=== PATIENT | female | born 1950 | race Caucasian/White ===

== ENCOUNTER 2017-10-11 11:43 | Emergency (ER) | payer BC, MEDICARE ==
[~2017-10-11] VITALS: Ht 162.6 cm; Wt 89.4 kg
[~2017-10-11 11:43] MED LIST: ALENDRONATE SOD70 MG PO; AMLODIPINE BESY10 MG PO; ASPIRIN325 MG PO; BACLOFEN TOP; CARVEDILOL12.5 MG PO; CRESTOR10 MG PO; DOXEPIN TOP; Hydrocort TOP; NASACORT INH; NEURONTIN300 MG PO; NORCO 10-325 T1 EACH PO; Nexium PO; SINGULAIR10 MG PO; Tylenol Arthritis PO; VESICARE5 MG PO; [UNRECOGNIZED DRUG - OTHER] TOP
--- OUTSIDE RECORDS SUMMARY | 2017-10-11 11:46 | XMS REPORT ---
Author Author [facility] Address Unknown Phone Unavailable Care Team Providers Care Financial Sales Professional Name Role Phone GUICHO BENNETT Unavailable Unavailable Problems This patient has no known problems. Allergies, Adverse Reactions, Alerts This patient has no known allergies or adverse reactions. Medications This patient has no known medications. Results Test Description Test Time Test Comments Text Results Atomic Results Result Comments CHEST [address] [facility] [address] [address] Patient Name: SERAFIN RODRIGUEZ MR #: [id number] : 1950 Age/Sex: 67/F Req # : [id number] Adm Physician: Ordered by: GUICHO BENNETT DPM Report #: [id number] Location: OR Room/Bed: Procedure: [id number] DX/CHEST 2 VIEWS Exam Date: Exam Time: REPORT STATUS: Signed PROCEDURE: Frontal and lateral views of the chest. COMPARISON: None. INDICATIONS: PRE OPERATIVE CHEST X-RAY FOR FOOT SURGERY FINDINGS: Lines/tubes: None. Lungs: Limited by body habitus. The lungs are well inflated and clear. There is no evidence of pneumonia or pulmonary edema. Left mid lung linear atelectasis/scaring. Pleura: There is no pleural effusion or pneumothorax. Heart and mediastinum: The cardiac silhouette is mildly enlarged. Bones: No acute bony abnormality. Mildly elevated right hemidiaphragm. IMPRESSION: 1. No acute cardiopulmonary disease. Dictated by: Bandar Cunningham M.D. on 06/01/2017 at 13:10 Electronically approved by: Bandar Cunningham M.D. on 06/01/2017 at 13:10 Dictated By: BANDAR CUNNINGHAM MD [id number] Transcribed By: ERNIE on 06/01/17 1310 COPY TO: GUICHO BENNETT DPM
[2017-10-11] MEDS ORDERED: ACETAMINOPHEN 325 MG TAB PO ONE (12:30)
[2017-10-11] MEDS ORDERED: CRESTOR10 MG (13:04)
== END 2017-10-11 13:38 | disposition home or self-care (01) ==
LOC: FSED 11:43
DX: S93.402A Sprain of unspecified ligament of left ankle, initial encounter (principal); W01.0XXA Fall on same level from slipping, tripping and stumbling without subsequent striking against object, initial encounter; Y92.008 Other place in unspecified non-institutional (private) residence as the place of occurrence of the external cause; I10 Essential (primary) hypertension
CPT/HCPCS: 99283

== ENCOUNTER 2019-03-21 17:04 | Emergency (ER) | payer MEDICARE ==
[~2019-03-21] VITALS: Ht 160 cm; Wt 88.0 kg
[~2019-03-21 17:04] MED LIST changes: +CRESTOR10 MG
--- OUTSIDE RECORDS SUMMARY | 2019-03-21 17:06 | XMS REPORT | Continuity of Care Document ---
Author Author [facility] Address Unknown Phone Unavailable Care Team Providers Care Wool Hanker Name Role Phone [facility] 12Return Information Exchange Unavailable Unavailable Problems No Data Provided for This Section Medications Medication Details Route Status Patient Instructions Ordering Provider Order Date Source Alendronate Sodium 70 Mg Tablet, 70 Mg Oral Daily Active 06/04/2017 [facility] Alendronate Sodium 70 Mg Tablet Weekly Active [facility] Amlodipine Besylate 10 Mg Tablet Daily Active [facility] Aspirin 325 Mg Tablet Daily Active [facility] Carvedilol 12.5 Mg Tablet Twice A Day Active [facility] Doxepin Four Times Daily Active [facility] Gabapentin (Neurontin) 300 Mg Capsule Daily Active [facility] Hydrocodone Bit/Acetaminophen ([place] 10-325 Tablet) 1 Each Tablet As Needed Active [facility] Hydrocort Twice A Day Active [facility] Katoprofen/Baclofen Four Times Daily Active [facility] Montelukast Sodium (Singulair) 10 Mg Tablet Daily Active [facility] Nasacort Twice A Day Active [facility] Nexium Daily Active [facility] Rosuvastatin Calcium (Crestor) 10 Mg Tab Bedtime Active THERAPEUTICALLY SUBSTITUTED WITH SIMVASTATIN 40MG [facility] Solifenacin Succinate (Vesicare) 5 Mg Tablet Daily Active [facility] Tylenol Arthritis Three Times A Day Active [facility] Allergies, Adverse Reactions, Alerts Substance Category Reaction Severity Reaction type Status Date Reported Comments Source Misoprostol Unknown Allergy to Substance Active 01/07/2010 [facility] Oxycodone Unknown Allergy to Substance Active 01/07/2010 [facility] Aspirin Unknown Allergy to Substance Active 01/07/2010 [facility] Erythromycin base Unknown Allergy to Substance Active 01/07/2010 [facility] Azithromycin Unknown Allergy to Substance Active 01/07/2010 [facility] HELEN INHALER Unknown Allergy to Substance Active 01/07/2010 [facility] SERVANT INHALER Unknown Allergy to Substance Active 01/07/2010 [facility] Lisinopril cough Unknown Allergy to Substance Active 06/02/2017 [facility] Ciprofloxacin nausea/vomiting/lightheadedness Unknown Allergy to Substance Active 06/02/2017 [facility] Amoxicillin nausea/sores on inside mouth Unknown Allergy to Substance Active 06/02/2017 [facility] TORESIMIDE Abnormal kidney results Unknown Allergy to Substance Active 06/02/2017 [facility] Immunizations No Data Provided for This Section Results No Data Provided for This Section Pathology Reports No Data Provided for This Section Diagnostic Reports No Data Provided for This Section Consultation Notes No Data Provided for This Section Discharge Summaries No Data Provided for This Section History and Physicals No Data Provided for This Section Vital Signs No Data Provided for This Section Encounters Location Location Details Encounter Type Encounter Number Reason For Visit Attending Provider ADM Date DC Date Status Source Registered Surgical Day Care [id number] GUICHO BENNETT DPM 06/04/2017 [facility] Departed Emergency Room [id number] NEERAJ MERCHANT MD 10/11/2017 10/11/2017 [facility] Procedures Procedure Code Date Perfomer Comments Source [employer] FASCIOTOMY 30421 06/04/2017 [facility] X-ray of chest, two views [id number] 06/01/2017 [facility] Assessment and Plan No Data Provided for This Section Plan of Care Plan of Care Date Source Discharge Date 10/11/17 1:38pm Disposition HOME, SELF-CARE Condition at Discharge Stable Instructions/Education Provided Sprains - Ankle Forms Provided Work/School Excuse Prescriptions See Medication Section Additional Instructions/Education See attached handout for instructions on care of Ankle Sprain Follow-up if the pain is worsening, instead of improving, despite resting, elevating and applying ice to the area. You may take the pain medication that you stated that you have at home, as needed, for pain. 10/11/2017 [facility] Social History Social History Date Source Smoking Status Start Date Stop Date Never Smoker 10/11/2017 [facility] Family History No Data Provided for This Section Advance Directives Order Name Results Value Date Source Advance Directives Advance Directives Directive Response Recorded Date/Time Does the patient have an advance directive? Yes 06/01/17 11:35am If yes, is advance directive on file with [facility]? No 12/31/09 2:39pm If not on file with [facility] will patient provide a copy? No 06/01/17 11:35am Do you have a Directive to Physician? No 10/11/17 12:29pm Do you have a Medical Power of Software Support Analyst? No 10/11/17 12:29pm Do you have an out of hospital Do Not Resuscitate Order? No 10/11/17 12:29pm Do you have any special needs we should be aware of? No 10/11/17 12:29pm Do you have a support person here with you today? Yes 10/11/17 12:29pm Did patient receive Notice of Privacy Practices? Yes 10/11/17 12:29pm Did patient receive patient rights and responsibilities? Yes 10/11/17 12:29pm 10/11/2017 [facility] Functional Status No Data Provided for This Section
[2019-03-21] MEDS ORDERED: ACETAMINOPHEN 325 MG TAB PO ONE ×2 (17:30)
[2019-03-21] MEDS ORDERED: IBUPROFEN 200 MG TAB ONE (17:31)
--- NOTE | 2019-03-21 18:10 | Diagnostic Imaging Report ---
Hand limited Indication:Fall, first digit pain Technique: Two views of the right hand obtained Comparison: None. Findings: The bones are diffusely demineralized. Distal radius and ulna appear intact. Carpal bones appear generally well aligned. There are moderate degenerative changes of the first CMC joint. The trapezium is poorly visualized due to overlapping osseous structures. No fracture or dislocation of the digits. No focal osseous lesions or radiopaque foreign bodies in the soft tissues. IMPRESSION: No evidence for displaced fracture or current dislocation given the limitations of this exam. 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 Signed by: Dr. Adeline Marroquin MD on 03/21/2019 6:06 PM
--- NOTE | 2019-03-21 18:11 | Diagnostic Imaging Report ---
Wrist limited right CPT code: 02348 Indication: Fall, posterior pain Technique: Two views right wrist obtained without comparison. Findings: The visualized portions of the distal radius and ulna are intact. No destructive lesions of bone. Carpal bones in the distal row overlap with head of the metacarpal bones on several images. Proximal row of carpal bones appears intact. Visualized metacarpal bones appear intact. There are degenerative changes of the first CMC joint. IMPRESSION: No evidence of displaced fracture or dislocation involving the right wrist. Signed by: Dr. Adeline Marroquin MD on 03/21/2019 6:08 PM
--- NOTE | 2019-03-21 18:13 | Diagnostic Imaging Report ---
Elbow limited CPT code: 49327 Indication: Trauma Technique: A.P. and lateral images of the right elbow obtained without comparison Findings: Alignment appears maintained on the lateral view. No evidence of dislocation. The head of the radius appears intact, although overlapping with adjacent structures on both images. Proximal ulna appears intact. Distal humerus appears intact. No evidence of elbow effusion. IMPRESSION: No evidence of acute fracture or dislocation. Signed by: Dr. Adeline Marroquin MD on 03/21/2019 6:09 PM
[2019-03-21] MEDS ORDERED: IBUPROFEN 600 MG TAB PO STA (18:20)
[2019-03-21 18:43] VITALS: BP 138/84
== END 2019-03-21 18:55 | disposition home or self-care (01) ==
LOC: FSED 17:04
DX: S50.01XA Contusion of right elbow, initial encounter (principal); S60.211A Contusion of right wrist, initial encounter; S80.01XA Contusion of right knee, initial encounter; W18.00XA Striking against unspecified object with subsequent fall, initial encounter; Y92.481 Parking lot as the place of occurrence of the external cause; Z79.82 Long term (current) use of aspirin
CPT/HCPCS: 99283

== ENCOUNTER → 2021-03-21 | Outpatient (CLI) | payer MEDICARE | LOC: MRI 09:03 | PROVIDERS: ATTEND Family Medicine | DX: M54.16 Radiculopathy, lumbar region (principal) | CPT/HCPCS: 72148 ==

== ENCOUNTER → 2021-12-24 | Outpatient (CLI) | payer MEDICARE ==
[~2021-12-24] MED LIST changes: +GADOBENATE DIMEGLUMINE 1 ML IV ONE
[2021-12-24 11:42] LABS: CREATININE, SERUM 1.08 mg/dL (0.57-1.11)
== END ==
LOC: MRI 10:45
PROVIDERS: ATTEND Urology
DX: D41.02 Neoplasm of uncertain behavior of left kidney (principal); N18.9 Chronic kidney disease, unspecified
CPT/HCPCS: 36415; 74183; 82565; 84520; A9577

== ENCOUNTER → 2021-12-31 | Outpatient (CLI) | payer MEDICARE ==
[~2021-12-31] MED LIST changes: -GADOBENATE DIMEGLUMINE 1 ML IV ONE
== END ==
LOC: MRI 14:21
PROVIDERS: ATTEND Family Medicine
DX: M54.16 Radiculopathy, lumbar region (principal)
CPT/HCPCS: 72148

== ENCOUNTER 2022-01-23 14:29 | Inpatient (IN) | payer MEDICARE, OTHER ==
[~2022-01-23] VITALS: Ht 160 cm; Wt 88.0 kg
[2022-01-23] MEDS ORDERED: DOXYCYCLINE IV ONE (15:30)
[2022-01-23] MEDS ORDERED: SODIUM CHLORIDE 0.9% IV ONE (15:30)
[2022-01-23] MEDS ORDERED: ACETAMINOPHEN 325 MG TAB PO ONE (15:30)
[2022-01-23] MEDS ORDERED: SODIUM CHLORIDE 0.9% 1000ML 2,470 ML IV ONE (15:30)
[2022-01-23 15:47] LABS: BASOPHILS % 0.3 % (0.0-1.0); EOSINOPHILS # (AUTO) 0.5 (0.0-0.4); EOSINOPHILS % 3.9 % (0.0-6.0); HEMOGLOBIN 13.3 g/dL (12.0-16.0); LYMPHOCYTES % 8.4 % (18.0-39.1); MEAN CORPUSCULAR HEMOGLOBIN 31.7 pg (28-32); MEAN CORPUSCULAR HGB CONC 31.7 g/dL (31-35); MONOCYTES # (AUTO) 1.2 (0.2-0.8); MONOCYTES % 10.3 % (4.4-11.3); NEUTROPHILS # (AUTO) 9.1 (2.1-6.9); NEUTROPHILS % 76.7 % (38.7-80.0); PLATELET COUNT 197 x10e3/uL (140-360); RED CELL DISTRIBUTION WIDTH 12.9 % (11.7-14.4)
[2022-01-23 15:59] LABS: ALBUMIN 2.8 g/dL (3.5-5.0); ALBUMIN/GLOBULIN RATIO 0.6 (0.8-2.0); ANION GAP 16.1 mmol/L (8-16); CALCIUM 9.4 mg/dL (8.4-10.2); CREATININE, SERUM 1.1 mg/dL (0.57-1.11); POTASSIUM 4.1 mmol/L (3.5-5.1)
[2022-01-23] MEDS ORDERED: Doxycycline IV 100 MG in SODIUM CHLORIDE 0.9% 100 ML IV ONE (16:00)
[2022-01-23 16:52] LABS: CLARITY,URINE CLEAR (CLEAR); COLOR,URINE YELLOW (YELLOW); KETONES,URINE NEGATIVE (NEGATIVE); LEUKOCYTE ESTERASE ,URINE TRACE (NEGATIVE); NITRITE,URINE NEGATIVE (NEGATIVE); PROTEIN,URINE DIPSTICK 1+ (NEGATIVE); URINE UROBILINOGEN 0.2 mg/dL (0.2 - 1)
[2022-01-23 17:02] LABS: BACTERIA,URINE RARE /HPF; EPITHELIAL CELLS,URINE FEW /LPF; RBC,URINE 0-5 /HPF (0-5)
[2022-01-23] MEDS ORDERED: PROAIR HFA INH8.5 GM PO (17:45)
[2022-01-23] MEDS ORDERED: DOXYCYCLINE HY100 M4 PO (17:45)
[2022-01-23] MEDS ORDERED: DECADRON4 M1 PO (17:45)
[2022-01-23] MEDS ORDERED: ALBUTEROL SULFATE HFA 8GM INHALATION AEROSOL INH PRN (18:15)
[2022-01-23] MEDS ORDERED: SODIUM CHLORIDE FLUSH 10 ML SYR INJ PRN (18:15)
[2022-01-23 21:30] VITALS: BP 112/64
[2022-01-23] MEDS ORDERED: ELIQUIS5 MG PO (21:35)
[2022-01-23] MEDS ORDERED: DYMISTA NASAL S23 GM INH (21:43)
[2022-01-23] MEDS ORDERED: MYRBETRIQ50 MG PO (21:43)
[2022-01-23] MEDS ORDERED: TIZANIDINE HCL4 MG PO (21:43)
[2022-01-23 22:36] VITALS: BP 107/51
[2022-01-23] MEDS: ACETAMINOPHEN 325 MG TAB PO PRN (23:06)
[2022-01-23 23:50] VITALS: BP 120/80
[2022-01-24] VITALS (7 sets, daily range): BP systolic 134–172; BP diastolic 57–69
[2022-01-24] MEDS ORDERED: HYDROCODONE/APAP 10MG-325MG TAB PO PRN (01:45)
[2022-01-24 06:40] LABS: BASOPHILS % 0.4 % (0.0-1.0); EOSINOPHILS # (AUTO) 0.3 (0.0-0.4); EOSINOPHILS % 4.8 % (0.0-6.0); HEMATOCRIT 37.6 % (34.2-44.1); HEMOGLOBIN 11.7 g/dL (12.0-16.0); LYMPHOCYTES # (AUTO) 0.8 (1.0-3.2); LYMPHOCYTES % 11.4 % (18.0-39.1); MEAN CORPUSCULAR HEMOGLOBIN 31.5 pg (28-32); MEAN CORPUSCULAR HGB CONC 31.1 g/dL (31-35); MEAN CORPUSCULAR VOLUME 101.1 fL (81-99); MONOCYTES # (AUTO) 0.6 (0.2-0.8); MONOCYTES % 8.8 % (4.4-11.3); NEUTROPHILS % 73.7 % (38.7-80.0); PLATELET COUNT 121 x10e3/uL (140-360); RED BLOOD COUNT 3.72 x10e6/uL (3.6-5.1); RED CELL DISTRIBUTION WIDTH 12.8 % (11.7-14.4)
[2022-01-24 07:11] LABS: ALBUMIN 2.2 g/dL (3.5-5.0); ALBUMIN/GLOBULIN RATIO 0.6 (0.8-2.0); ANION GAP 14.3 mmol/L (8-16); CALCIUM 8.2 mg/dL (8.4-10.2); CREATININE, SERUM 0.87 mg/dL (0.57-1.11); MAGNESIUM 1.6 MG/DL (1.3-2.1); POTASSIUM 4.3 mmol/L (3.5-5.1)
[2022-01-24] MEDS: DEXAMETHASONE 4 MG TAB PO SCH ×2 (08:04→16:50)
[2022-01-24] MEDS: DOXYCYCLINE HYCLATE TABLET 100 MG TAB PO SCH ×2 (08:05→16:50)
[2022-01-24] MEDS: SOLIFENACIN SUCCINATE 5 MG TAB PO SCH (08:05)
[2022-01-24] MEDS: BENZONATATE 100 MG CAP PO SCH ×2 (08:05→16:50)
[2022-01-24] MEDS: APIXABAN 5 MG TABLET PO SCH ×2 (08:05→16:50)
[2022-01-24] MEDS: GABAPENTIN 400 MG CAP PO SCH ×3 (08:06→20:44)
[2022-01-24] MEDS ORDERED: SODIUM CHLORIDE 0.9% 500ML 500 ML ONE (08:29)
[2022-01-24] MEDS: ACETAMINOPHEN 325 MG TAB PO PRN ×2 (15:20→20:52)
[2022-01-24] MEDS: SIMVASTATIN 20 MG TAB PO SCH (20:44)
[2022-01-24] MEDS: MONTELUKAST SODIUM 10 MG TAB PO SCH (20:44)
[2022-01-24] MEDS: ONDANSETRON HCL INJ 2MG/ML 2ML 2 MG/ML VIAL IV PRN (20:52)
[2022-01-25] VITALS (8 sets, daily range): BP systolic 121–179; BP diastolic 67–88
[2022-01-25] MEDS: ACETAMINOPHEN 325 MG TAB PO PRN (06:32)
[2022-01-25] MEDS: ONDANSETRON HCL INJ 2MG/ML 2ML 2 MG/ML VIAL IV PRN (06:33)
[2022-01-25 07:04] LABS: BASOPHILS % 0.1 % (0.0-1.0); HEMATOCRIT 38.7 % (34.2-44.1); HEMOGLOBIN 12.4 g/dL (12.0-16.0); LYMPHOCYTES # (AUTO) 0.5 (1.0-3.2); LYMPHOCYTES % 6.7 % (18.0-39.1); MEAN CORPUSCULAR HEMOGLOBIN 31.7 pg (28-32); MONOCYTES # (AUTO) 0.3 (0.2-0.8); MONOCYTES % 4.2 % (4.4-11.3); NEUTROPHILS # (AUTO) 7.1 (2.1-6.9); PLATELET COUNT 145 x10e3/uL (140-360); RED BLOOD COUNT 3.91 x10e6/uL (3.6-5.1); RED CELL DISTRIBUTION WIDTH 12.5 % (11.7-14.4)
[2022-01-25] MEDS ORDERED: HYDRALAZINE HCL 20 MG/ML VIAL IV PRN (07:15)
[2022-01-25 07:29] LABS: ALBUMIN 2.5 g/dL (3.5-5.0); ALBUMIN/GLOBULIN RATIO 0.6 (0.8-2.0); CALCIUM 8.9 mg/dL (8.4-10.2); CREATININE, SERUM 0.78 mg/dL (0.57-1.11); MAGNESIUM 1.9 MG/DL (1.3-2.1)
[2022-01-25] MEDS: GABAPENTIN 400 MG CAP PO SCH ×3 (08:51→20:47)
[2022-01-25] MEDS: SOLIFENACIN SUCCINATE 5 MG TAB PO SCH (08:52)
[2022-01-25] MEDS: APIXABAN 5 MG TABLET PO SCH ×2 (08:52→16:43)
[2022-01-25] MEDS: DEXAMETHASONE 4 MG TAB PO SCH ×2 (08:52→16:43)
[2022-01-25] MEDS: BENZONATATE 100 MG CAP PO SCH ×2 (08:53→16:44)
[2022-01-25] MEDS: DOXYCYCLINE HYCLATE TABLET 100 MG TAB PO SCH ×2 (08:53→16:44)
[2022-01-25] MEDS: GUAIFENESIN/CODEINE 5 ML LIQD PO PRN (19:58)
[2022-01-25] MEDS: MONTELUKAST SODIUM 10 MG TAB PO SCH (20:47)
[2022-01-25] MEDS: SIMVASTATIN 20 MG TAB PO SCH (20:47)
[2022-01-25] MEDS: POLYETHYLENE GLYCOL 3350 17 GM PACK PO PRN (20:54)
[2022-01-26] VITALS (8 sets, daily range): BP systolic 113–181; BP diastolic 58–79
[2022-01-26] MEDS: GUAIFENESIN/CODEINE 5 ML LIQD PO PRN ×5 (00:17→21:25)
[2022-01-26] MEDS: ONDANSETRON HCL INJ 2MG/ML 2ML 2 MG/ML VIAL IV PRN ×2 (00:19→05:49)
[2022-01-26] MEDS: HYDRALAZINE HCL 25 MG TAB PO SCH ×3 (09:23→21:26)
[2022-01-26] MEDS: DEXAMETHASONE 4 MG TAB PO SCH (09:24)
[2022-01-26] MEDS: APIXABAN 5 MG TABLET PO SCH ×2 (09:24→17:18)
[2022-01-26] MEDS: GABAPENTIN 400 MG CAP PO SCH ×3 (09:24→21:25)
[2022-01-26] MEDS: BENZONATATE 100 MG CAP PO SCH ×2 (09:25→17:19)
[2022-01-26] MEDS: SOLIFENACIN SUCCINATE 5 MG TAB PO SCH (09:25)
[2022-01-26] MEDS: DOXYCYCLINE HYCLATE TABLET 100 MG TAB PO SCH ×2 (09:25→17:19)
[2022-01-26] MEDS: POLYETHYLENE GLYCOL 3350 17 GM PACK PO PRN (11:03)
[2022-01-26] MEDS: MONTELUKAST SODIUM 10 MG TAB PO SCH (21:25)
[2022-01-26] MEDS: SIMVASTATIN 20 MG TAB PO SCH (21:26)
[2022-01-26] MEDS: ACETAMINOPHEN 325 MG TAB PO PRN (23:58)
[2022-01-27] VITALS (8 sets, daily range): BP systolic 103–126; BP diastolic 56–84
[2022-01-27] MEDS: GUAIFENESIN/CODEINE 5 ML LIQD PO PRN ×3 (04:15→20:32)
[2022-01-27 06:39] LABS: BASOPHILS % 0.2 % (0.0-1.0); EOSINOPHILS % 0.2 % (0.0-6.0); HEMOGLOBIN 12.7 g/dL (12.0-16.0); LYMPHOCYTES # (AUTO) 0.9 (1.0-3.2); LYMPHOCYTES % 10.4 % (18.0-39.1); MEAN CORPUSCULAR HEMOGLOBIN 30.6 pg (28-32); MEAN CORPUSCULAR VOLUME 98.8 fL (81-99); MONOCYTES # (AUTO) 0.8 (0.2-0.8); MONOCYTES % 8.6 % (4.4-11.3); NEUTROPHILS # (AUTO) 6.8 (2.1-6.9); NEUTROPHILS % 76.8 % (38.7-80.0); PLATELET COUNT 194 x10e3/uL (140-360); RED BLOOD COUNT 4.15 x10e6/uL (3.6-5.1); RED CELL DISTRIBUTION WIDTH 12.6 % (11.7-14.4)
[2022-01-27 07:07] LABS: ALBUMIN 2.5 g/dL (3.5-5.0); ALBUMIN/GLOBULIN RATIO 0.6 (0.8-2.0); ANION GAP 13.9 mmol/L (8-16); CALCIUM 8.9 mg/dL (8.4-10.2); CREATININE, SERUM 1.15 mg/dL (0.57-1.11); POTASSIUM 3.9 mmol/L (3.5-5.1)
[2022-01-27] MEDS: HYDRALAZINE HCL 25 MG TAB PO SCH ×3 (09:04→20:32)
[2022-01-27] MEDS: DEXAMETHASONE 4 MG TAB PO SCH (09:04)
[2022-01-27] MEDS: GABAPENTIN 400 MG CAP PO SCH ×3 (09:04→20:31)
[2022-01-27] MEDS: BENZONATATE 100 MG CAP PO SCH ×2 (09:05→17:14)
[2022-01-27] MEDS: SOLIFENACIN SUCCINATE 5 MG TAB PO SCH (09:05)
[2022-01-27] MEDS: APIXABAN 5 MG TABLET PO SCH ×2 (09:05→17:14)
[2022-01-27] MEDS: DOXYCYCLINE HYCLATE TABLET 100 MG TAB PO SCH ×2 (09:06→17:14)
[2022-01-27] MEDS: SIMVASTATIN 20 MG TAB PO SCH (20:32)
[2022-01-27] MEDS: MONTELUKAST SODIUM 10 MG TAB PO SCH (20:32)
[2022-01-27] MEDS: MELATONIN 5 MG TABLET PO SCH (22:24)
[2022-01-28] VITALS (7 sets, daily range): BP systolic 110–156; BP diastolic 66–78
[2022-01-28] MEDS: ACETAMINOPHEN 325 MG TAB PO PRN (00:04)
[2022-01-28] MEDS: FAMOTIDINE 20 MG TAB PO SCH (06:35)
[2022-01-28 06:43] LABS: ALBUMIN 2.3 g/dL (3.5-5.0); ALBUMIN/GLOBULIN RATIO 0.6 (0.8-2.0); ANION GAP 16.9 mmol/L (8-16); CREATININE, SERUM 1.12 mg/dL (0.57-1.11); POTASSIUM 3.9 mmol/L (3.5-5.1)
[2022-01-28] MEDS: SOLIFENACIN SUCCINATE 5 MG TAB PO SCH (08:58)
[2022-01-28] MEDS: GABAPENTIN 400 MG CAP PO SCH ×3 (08:58→20:10)
[2022-01-28] MEDS: APIXABAN 5 MG TABLET PO SCH ×2 (08:59→17:54)
[2022-01-28] MEDS: DOXYCYCLINE HYCLATE TABLET 100 MG TAB PO SCH ×2 (08:59→17:54)
[2022-01-28] MEDS: HYDRALAZINE HCL 25 MG TAB PO SCH ×3 (08:59→20:10)
[2022-01-28] MEDS: BENZONATATE 100 MG CAP PO SCH ×2 (09:00→17:54)
[2022-01-28] MEDS: DEXAMETHASONE 4 MG TAB PO SCH (09:00)
[2022-01-28] MEDS ORDERED: FUROSEMIDE INJ 10 MG/ML 2 ML VIAL IV ONE (18:45)
[2022-01-28] MEDS: MONTELUKAST SODIUM 10 MG TAB PO SCH (20:10)
[2022-01-28] MEDS: SIMVASTATIN 20 MG TAB PO SCH (20:10)
[2022-01-28] MEDS: MELATONIN 5 MG TABLET PO SCH (20:10)
[2022-01-29] VITALS (7 sets, daily range): BP systolic 109–151; BP diastolic 59–78
[2022-01-29 07:00] LABS: BASOPHILS % 0.3 % (0.0-1.0); EOSINOPHILS # (AUTO) 0.2 (0.0-0.4); EOSINOPHILS % 2.8 % (0.0-6.0); HEMATOCRIT 42.2 % (34.2-44.1); LYMPHOCYTES # (AUTO) 1.3 (1.0-3.2); LYMPHOCYTES % 15.8 % (18.0-39.1); MEAN CORPUSCULAR HEMOGLOBIN 30.8 pg (28-32); MEAN CORPUSCULAR HGB CONC 30.8 g/dL (31-35); MONOCYTES # (AUTO) 0.9 (0.2-0.8); MONOCYTES % 10.6 % (4.4-11.3); NEUTROPHILS # (AUTO) 5.3 (2.1-6.9); NEUTROPHILS % 66.1 % (38.7-80.0); PLATELET COUNT 160 x10e3/uL (140-360); RED BLOOD COUNT 4.22 x10e6/uL (3.6-5.1); RED CELL DISTRIBUTION WIDTH 12.8 % (11.7-14.4)
[2022-01-29 07:24] LABS: ALBUMIN 2.5 g/dL (3.5-5.0); ALBUMIN/GLOBULIN RATIO 0.7 (0.8-2.0); ANION GAP 15.3 mmol/L (8-16); CALCIUM 9.2 mg/dL (8.4-10.2); CREATININE, SERUM 1.11 mg/dL (0.57-1.11); POTASSIUM 4.3 mmol/L (3.5-5.1)
[2022-01-29] MEDS: GABAPENTIN 400 MG CAP PO SCH ×3 (08:44→21:04)
[2022-01-29] MEDS: FAMOTIDINE 20 MG TAB PO SCH (08:44)
[2022-01-29] MEDS: APIXABAN 5 MG TABLET PO SCH ×2 (08:44→17:12)
[2022-01-29] MEDS: HYDRALAZINE HCL 25 MG TAB PO SCH ×3 (08:44→21:00)
[2022-01-29] MEDS: BENZONATATE 100 MG CAP PO SCH ×2 (08:45→17:12)
[2022-01-29] MEDS: SOLIFENACIN SUCCINATE 5 MG TAB PO SCH (08:45)
[2022-01-29] MEDS: DEXAMETHASONE 4 MG TAB PO SCH (08:45)
[2022-01-29] MEDS: DOXYCYCLINE HYCLATE TABLET 100 MG TAB PO SCH ×2 (08:46→17:13)
[2022-01-29] MEDS: ONDANSETRON HCL INJ 2MG/ML 2ML 2 MG/ML VIAL IV PRN (10:39)
[2022-01-29] MEDS: MELATONIN 5 MG TABLET PO SCH (21:04)
[2022-01-29] MEDS: MONTELUKAST SODIUM 10 MG TAB PO SCH (21:04)
[2022-01-29] MEDS: GUAIFENESIN/CODEINE 5 ML LIQD PO PRN (21:04)
[2022-01-29] MEDS: SIMVASTATIN 20 MG TAB PO SCH (21:04)
[2022-01-30 01:10] VITALS: BP 126/91
[2022-01-30 03:54] VITALS: BP 141/71
[2022-01-30 08:29] VITALS: BP 119/69
[2022-01-30 08:34] VITALS: BP 119/69
[2022-01-30] MEDS: GABAPENTIN 400 MG CAP PO SCH ×2 (09:18→16:27)
[2022-01-30] MEDS: DEXAMETHASONE 4 MG TAB PO SCH (09:18)
[2022-01-30] MEDS: HYDRALAZINE HCL 25 MG TAB PO SCH ×2 (09:18→15:00)
[2022-01-30] MEDS: APIXABAN 5 MG TABLET PO SCH ×2 (09:18→16:27)
[2022-01-30] MEDS: FAMOTIDINE 20 MG TAB PO SCH (09:19)
[2022-01-30] MEDS: SOLIFENACIN SUCCINATE 5 MG TAB PO SCH (09:19)
[2022-01-30] MEDS: DOXYCYCLINE HYCLATE TABLET 100 MG TAB PO SCH ×2 (09:19→16:28)
[2022-01-30] MEDS: BENZONATATE 100 MG CAP PO SCH ×2 (09:19→16:27)
[2022-01-30 12:08] VITALS: BP 116/65
[2022-01-30] MEDS ORDERED: augmentin PO (13:42)
[2022-01-30] MEDS ORDERED: DEXAMETHASONE4 MG PO (13:42)
[2022-01-30] MEDS ORDERED: ONDANSETRON HCL 4 MG ORAL DISINTEGRATING TAB PO PRN (14:30)
[2022-01-30] MEDS ORDERED: PANTOPRAZOLE SOD 40 MG TABEC PO SCH (16:30)
[2022-01-30 16:49] VITALS: BP 101/65
== END 2022-01-30 17:40 | disposition home or self-care (01) | DRG 871 ==
LOC: ER 14:35 → ERHOLD 19:15 → MED/SURG3 21:11 → OBSVTOIN 01-25 09:02
PROVIDERS: ADMIT Family Medicine; ATTEND Family Medicine
DX: A41.9 Sepsis, unspecified organism (principal); J12.82 Pneumonia due to coronavirus disease 2019; U07.1 COVID-19; J96.01 Acute respiratory failure with hypoxia; J69.0 Pneumonitis due to inhalation of food and vomit; B17.9 Acute viral hepatitis, unspecified; N17.9 Acute kidney failure, unspecified; N39.0 Urinary tract infection, site not specified; K21.9 Gastro-esophageal reflux disease without esophagitis; N32.81 Overactive bladder; J30.2 Other seasonal allergic rhinitis; I25.10 Atherosclerotic heart disease of native coronary artery without angina pectoris; E78.00 Pure hypercholesterolemia, unspecified; J44.9 Chronic obstructive pulmonary disease, unspecified; E11.22 Type 2 diabetes mellitus with diabetic chronic kidney disease; I12.9 Hypertensive chronic kidney disease with stage 1 through stage 4 chronic kidney disease, or unspecified chronic kidney disease; N18.9 Chronic kidney disease, unspecified; E78.5 Hyperlipidemia, unspecified; K44.9 Diaphragmatic hernia without obstruction or gangrene; B96.5 Pseudomonas (aeruginosa) (mallei) (pseudomallei) as the cause of diseases classified elsewhere; R79.89 Other specified abnormal findings of blood chemistry
CPT/HCPCS: 36415; 71045; 71250; 76705; 80053; 81001; 83605; 83690; 83735; 83880; 84484; 85025; 87040; 87086; 87186; 93005; 93306; 94799; 99284; G0378; J0360; J0696; J1940; J2405; J2543; J7030; J7040; J7050

== ENCOUNTER → 2022-11-17 | Day surgery (SDC) | payer MEDICARE ==
[~2022-11-17] MED LIST changes: +DECADRON4 M1 PO; +DEXAMETHASONE4 MG PO; +DOXYCYCLINE HY100 M4 PO; +DYMISTA NASAL S23 GM INH; +ELIQUIS5 MG PO; +FENTANYL CITRATE/PF 100MCG/2 ML INJ ONE; +GEMTESA75 MG PO; +LACTATED RINGER'S 1,000 ML ONE; +LOSARTAN POTAS100 MG PO; +MIDAZOLAM HCL 2 MG/2 ML VIAL ONE; +MYRBETRIQ50 MG PO; +OR PHACO EYE KIT ONE; +PREOP PHACO EYE KIT ONE; +PROAIR HFA INH8.5 GM PO; +TIZANIDINE HCL4 MG PO; +augmentin PO
[2022-11-17 12:32] VITALS: BP 127/75
== END | disposition home or self-care (01) ==
LOC: OR 08:31
PROVIDERS: ATTEND Ophthalmology
DX: H25.11 Age-related nuclear cataract, right eye (principal); I12.9 Hypertensive chronic kidney disease with stage 1 through stage 4 chronic kidney disease, or unspecified chronic kidney disease; N18.9 Chronic kidney disease, unspecified; K21.9 Gastro-esophageal reflux disease without esophagitis; Z88.6 Allergy status to analgesic agent; Z88.1 Allergy status to other antibiotic agents; Z88.0 Allergy status to penicillin; Z88.8 Allergy status to other drugs, medicaments and biological substances; Z79.02 Long term (current) use of antithrombotics/antiplatelets; Z79.82 Long term (current) use of aspirin; Z79.899 Other long term (current) drug therapy
CPT/HCPCS: 66984; J2250; J3010; J7121; V2632

== ENCOUNTER → 2022-11-25 | Day surgery (SDC) | payer MEDICARE ==
[~2022-11-25] MED LIST changes: +BUPIVACAINE HCL 0.5% INJ 30 ML VIAL INJ ONE; +CLINDAMYCIN PHOS 900MG/ 50ML 50 ML IV ONE; +DEXAMETHASONE SOD PHOS INJ 4 MG/ML SDV ONE; +EPHEDRINE SULFATE INJ 50 MG/ML VIAL ONE; +LIDOCAINE HCL 2% LOCAL INJ 5 ML SDV VIAL INJ ONE; -MIDAZOLAM HCL 2 MG/2 ML VIAL ONE; +ONDANSETRON HCL INJ 2MG/ML 2ML 2 MG/ML VIAL ONE; -OR PHACO EYE KIT ONE; +POVIDONE IODINE 0.05% 0.05 % ML PO ONE; -PREOP PHACO EYE KIT ONE; +PROPOFOL IV EMULSION 10 MG/ML 20 ML VIAL ONE; +SEVOFLURANE INHAL SOLN 250 ML PEN BTL ONE
[2022-11-25 08:45] VITALS: BP 131/81
== END | disposition home or self-care (01) ==
LOC: OR 05:24
PROVIDERS: ATTEND Podiatrist Foot & Ankle Surgery
DX: G57.51 Tarsal tunnel syndrome, right lower limb (principal); I10 Essential (primary) hypertension; J45.909 Unspecified asthma, uncomplicated; K21.9 Gastro-esophageal reflux disease without esophagitis; G89.29 Other chronic pain; Z79.02 Long term (current) use of antithrombotics/antiplatelets; Z79.82 Long term (current) use of aspirin; Z79.899 Other long term (current) drug therapy; Z86.73 Personal history of transient ischemic attack (TIA), and cerebral infarction without residual deficits
CPT/HCPCS: 28035; 71046; J1100; J2001; J2405; J2704; J3010; J7121

== ENCOUNTER → 2022-12-07 | Outpatient (CLI) | payer MEDICARE ==
[~2022-12-07] MED LIST changes: +BIOTIN1 MG; -BUPIVACAINE HCL 0.5% INJ 30 ML VIAL INJ ONE; +CALCIUM ACETAT667 M1 PO; -CLINDAMYCIN PHOS 900MG/ 50ML 50 ML IV ONE; +D3-5000125 MCG; -DEXAMETHASONE SOD PHOS INJ 4 MG/ML SDV ONE; -EPHEDRINE SULFATE INJ 50 MG/ML VIAL ONE; -FENTANYL CITRATE/PF 100MCG/2 ML INJ ONE; -LACTATED RINGER'S 1,000 ML ONE; -LIDOCAINE HCL 2% LOCAL INJ 5 ML SDV VIAL INJ ONE; +MULTI-VITAMIN1 EACH PO; -ONDANSETRON HCL INJ 2MG/ML 2ML 2 MG/ML VIAL ONE; -POVIDONE IODINE 0.05% 0.05 % ML PO ONE; +PROBIOTIC250 MG; -PROPOFOL IV EMULSION 10 MG/ML 20 ML VIAL ONE; -SEVOFLURANE INHAL SOLN 250 ML PEN BTL ONE
== END ==
LOC: US 07:37
PROVIDERS: ATTEND Internal Medicine Gastroenterology
DX: K76.0 Fatty (change of) liver, not elsewhere classified (principal); K22.70 Barrett's esophagus without dysplasia; K57.30 Diverticulosis of large intestine without perforation or abscess without bleeding; K29.00 Acute gastritis without bleeding; K44.9 Diaphragmatic hernia without obstruction or gangrene; R16.0 Hepatomegaly, not elsewhere classified; Z68.31 Body mass index [BMI] 31.0-31.9, adult
CPT/HCPCS: 76700

== ENCOUNTER → 2022-12-15 | Day surgery (SDC) | payer MEDICARE ==
[2022-12-09 11:21] LABS: BASOPHILS # (AUTO) 0.1 (0.0-0.1); BASOPHILS % 1.2 % (0.0-1.0); EOSINOPHILS # (AUTO) 0.4 (0.0-0.4); EOSINOPHILS % 8.4 % (0.0-6.0); HEMATOCRIT 41.3 % (34.2-44.1); HEMOGLOBIN 12.8 g/dL (12.0-16.0); LYMPHOCYTES # (AUTO) 1.5 (1.0-3.2); LYMPHOCYTES % 29.3 % (18.0-39.1); MEAN CORPUSCULAR VOLUME 96.9 fL (81-99); MONOCYTES # (AUTO) 0.6 (0.2-0.8); MONOCYTES % 12.6 % (4.4-11.3); NEUTROPHILS # (AUTO) 2.5 (2.1-6.9); NEUTROPHILS % 48.3 % (38.7-80.0); PLATELET COUNT 144 x10e3/uL (140-360); RED BLOOD COUNT 4.26 x10e6/uL (3.6-5.1); RED CELL DISTRIBUTION WIDTH 13.1 % (11.7-14.4)
[~2022-12-15] MED LIST changes: +FENTANYL CITRATE/PF 100MCG/2 ML INJ ONE; +LACTATED RINGER'S 1,000 ML ONE; +MIDAZOLAM HCL 2 MG/2 ML VIAL ONE; +OR PHACO EYE KIT ONE; +PREOP PHACO EYE KIT ONE
[2022-12-15 09:42] VITALS: TEMP 97.2
[2022-12-15 09:57] VITALS: BP 146/91; PULSE 69; RESP 16; O2SAT 95
== END | disposition home or self-care (01) ==
LOC: OR 07:31
PROVIDERS: ATTEND Ophthalmology
DX: H25.12 Age-related nuclear cataract, left eye (principal); I10 Essential (primary) hypertension; E78.5 Hyperlipidemia, unspecified; J45.909 Unspecified asthma, uncomplicated; M54.9 Dorsalgia, unspecified; K76.0 Fatty (change of) liver, not elsewhere classified; K21.9 Gastro-esophageal reflux disease without esophagitis; N28.9 Disorder of kidney and ureter, unspecified; Z88.6 Allergy status to analgesic agent; Z88.1 Allergy status to other antibiotic agents; Z88.0 Allergy status to penicillin; Z88.8 Allergy status to other drugs, medicaments and biological substances; Z01.812 Encounter for preprocedural laboratory examination; Z86.73 Personal history of transient ischemic attack (TIA), and cerebral infarction without residual deficits
CPT/HCPCS: 36415; 66984; 85025; J7121; J2250; V2632

== ENCOUNTER → 2025-04-11 | Day surgery (SDC) | payer MEDICARE ==
[2025-04-06 09:25] LABS: BASOPHILS % 0.8 % (0.0-1.0); EOSINOPHILS % 5.4 % (0.0-6.0); LYMPHOCYTES % 27.2 % (18.0-39.1); MONOCYTES % 10.3 % (4.4-11.3); NEUTROPHILS % 56.0 % (38.7-80.0); RED CELL DISTRIBUTION WIDTH 14.8 % (11.7-14.4)
[~2025-04-11] MED LIST changes: +ACCRUFER30 MG; +BREZTRI AEROS10.7 GM; +ERGOCALCIFEROL1 GM; -FENTANYL CITRATE/PF 100MCG/2 ML INJ ONE; +HYDROCHLOROTHIA25 MG PO; +LIDOCAINE HCL 2% LOCAL INJ 5 ML SDV VIAL INJ ONE; +LYRICA25 MG PO; -MIDAZOLAM HCL 2 MG/2 ML VIAL ONE; +NEXIUM40 MG PO; -OR PHACO EYE KIT ONE; +ORPHENADRINE C100 MG PO; +POTASSIUM99 M1; -PREOP PHACO EYE KIT ONE; +PROPOFOL IV EMULSION 10 MG/ML 20 ML VIAL ONE; +VENTOLIN HFA18 GM INH
[2025-04-11 12:15] VITALS: TEMP 98.3
[2025-04-11 12:30] VITALS: BP 116/63; PULSE 70; RESP 16; O2SAT 99
== END | disposition home or self-care (01) ==
LOC: OR 09:43
PROVIDERS: ATTEND Internal Medicine Gastroenterology
DX: K57.30 Diverticulosis of large intestine without perforation or abscess without bleeding (principal); D12.3 Benign neoplasm of transverse colon; K64.8 Other hemorrhoids; K44.9 Diaphragmatic hernia without obstruction or gangrene; K76.0 Fatty (change of) liver, not elsewhere classified; D64.9 Anemia, unspecified; G47.33 Obstructive sleep apnea (adult) (pediatric); Z78.9 Other specified health status; R16.0 Hepatomegaly, not elsewhere classified; J45.909 Unspecified asthma, uncomplicated; Z99.81 Dependence on supplemental oxygen; K21.9 Gastro-esophageal reflux disease without esophagitis; I12.9 Hypertensive chronic kidney disease with stage 1 through stage 4 chronic kidney disease, or unspecified chronic kidney disease; N18.30 Chronic kidney disease, stage 3 unspecified; E78.5 Hyperlipidemia, unspecified; Z88.1 Allergy status to other antibiotic agents; Z88.0 Allergy status to penicillin; Z88.8 Allergy status to other drugs, medicaments and biological substances; Z01.810 Encounter for preprocedural cardiovascular examination; Z01.812 Encounter for preprocedural laboratory examination; Z79.02 Long term (current) use of antithrombotics/antiplatelets; Z79.82 Long term (current) use of aspirin; Z79.51 Long term (current) use of inhaled steroids; Z79.899 Other long term (current) drug therapy; Z68.35 Body mass index [BMI] 35.0-35.9, adult; Z71.3 Dietary counseling and surveillance; Z80.0 Family history of malignant neoplasm of digestive organs; Z86.73 Personal history of transient ischemic attack (TIA), and cerebral infarction without residual deficits
CPT/HCPCS: 36415; 45385; 85025; 88305; 93005; J2003; J2704; J7121